=== PATIENT | male | born 1980 | race Caucasian/White ===

== ENCOUNTER 2016-11-30 19:59 | Emergency (ER) | payer OTHER ==
--- NOTE | 2016-11-30 21:57 | ED CLINICAL REPORT ---
Clinical Report - Physicians/Mid Levels [facility] [address] [place] [address] 11/30/2016 20:01 Patient: ORAL HAGAN Time Seen: 20:12; initial patient contact. Arrived- By ambulance. (park). Splint in place. Historian- patient and EMS personnel. HISTORY OF PRESENT ILLNESS Chief Complaint: Injury to the left leg and left knee. The injury happened just prior to arrival. The patient sustained an external rotation injury. Occurred at a park. ( Arrived by private vehicle. Historian: patient. Accompanied by family. Patient has a primary care physician. Primary physician (Suresh Piña). This occurred just prior to arrival. Occurred at a park. Mechanism of injury: sustained a twisting injury. The patient has had tingling, and trouble walking. The patient has been unable to walk. No numbness.). Patient is experiencing severe pain. No other injury. REVIEW OF SYSTEMS The patient complains of severe pain on weight bearing. He cannot walk. He has had swelling,, tingling, and weakness. All systems otherwise negative, except as recorded above. PAST HISTORY See nurses notes. Tetanus immunization status is up-to-date. Problems: Ocd. ADHD - Attention Deficit Hyperactivity Disorder. Cardiomegaly. Medications: Multi Complete Oral. Vyvanse Oral. AndroGel Transdermal. Allergies: None. SOCIAL HISTORY Never smoker. Occasional alcohol use. History of occasional drug use: marijuana. ADDITIONAL NOTES The nursing notes have been reviewed with agreement regarding the chief complaint, HPI, ROS, PMH and patient medications and allergies. PHYSICAL EXAM Vital Signs: 11/30/2016 20:02 BP: 146/77. HR: 64. RR: 16. O2 saturation: 100%. Temp: 98.1 F. Have been reviewed. Appearance: Alert. Appears to be in pain. Patient in mild distress. Skin: Skin intact. Skin warm and dry. Extremities: Left knee: moderate tenderness and swelling located in the proximal tibia, medial joint line and lateral joint line. Limited ROM secondary to pain, weakness and swelling (diminished flexion, extension and external and internal rotation). Small joint effusion present. Neurovascular intact distally. Left ankle. Neurovascular intact distally. No joint effusion. No tenderness. No foot injury. No ankle injury. Foot and ankle exam otherwise negative. No lower extremity edema. Gait: The patient was unable to bear weight. Gait not tested due to pain. Gait not tested due to pain. He was unable to bear weight. Neuro, Vascular and Tendons: Vascular status intact. Sensation intact. Motor intact. Tendon function intact. Neuro: Oriented X 3. LABS, X-RAYS, AND EKG X-Rays: Left tib/fib negative. The X-rays were independently viewed by me, interpreted by the radiologist and discussed with the radiologist. Lt Tib/Fib X-ray: No fracture. (PROCEDURE: XR TIBIA AND FIBULA - LEFT INDICATION: TRAUMA/INJURY TECHNIQUE: Two views of the left tibia and fibula COMPARISON: None. FINDINGS: Normal mineralization. No fractures. Normal osseous alignment. Well corticated, remote fracture of the medial malleolus. Tiny venous phlebolith noted along the proximal medial leg. No suspicious soft-tissue calcification or radiodense foreign bodies. IMPRESSION: 1. Intact left tibia and fibula. ). The X-rays were independently viewed by me, interpreted by the radiologist and discussed with the radiologist. Note - Tests: (Name: Oral Hagan : 1980 MR#: [id number] Ordering Provider: KB ASTUDILLO Exam(s): CT LOWER EXT W/O CONTRAST-LEFT Date of Exam: 11/30/2016 __ PROCEDURE: CT LOWER EXT W/O CONTRAST-LEFT INDICATION: Twisting injury, knee pain. TECHNIQUE: Axial thin-slice CT images were obtained through the left knee Coronal and sagittal reformations were created. COMPARISON: Plain films performed the same day FINDINGS: Soft tissues: There is a moderate size lipohemarthrosis. The anterior cruciate ligament was not well seen. Posterior cruciate ligament is vaguely seen and in the expected location. Components of the lateral collateral ligament complex appear grossly intact. No evidence of fibular avulsion. Medial collateral ligament appears grossly intact. No suspicious intra-articular calcifications. Bones: There is a tiny avulsion of the posterior rim of the mesial aspect of the medial tibial plateau. The lateral tibial plateau is intact. Minor marginal spur formation in the medial and lateral compartments. There are to linear sclerotic foci within the posterior aspect of the lateral femoral condyle which may be postoperative given patient history. IMPRESSION: 1. Minimal cortical avulsion of the posterior medial tibial plateau rim. 2. Lipohemarthrosis suggests occult fracture or significant osseous contusion. 3. Nonvisualization of the anterior cruciate ligament. This is nonspecific and may be post-traumatic or postsurgical. 4. MRI is recommended when the patient is able. 5. Findings called to the emergency room. Electronically Final signed by:Yeni Malone MD 11/30/2016 10:13:59 PM Technologist: CHITO). PROGRESS AND PROCEDURES Splint Application: Knee immobilizer applied to left knee. Splint applied by tech with direct supervision by me. Reassessed extremity following splint application. Neurovascular intact. Follow-up recommended within 2 days. Fitted for crutches by the tech. Course of Care: Patient is stable. Symptoms better. Consult obtained from orthopedics. Dr. Domínguez was available for consultation in the ER. Case discussed. Will see patient in the office in 2 days. Agree with treatment plan. Patient/family counseled. CLINICAL IMPRESSION Closed nondisplaced segmental fracture of the proximal aspect of the left tibia (medial tibial plateau fracture). Sprain of the medial collateral, lateral collateral, anterior cruciate and posterior cruciate ligament of the left knee. INSTRUCTIONS Apply ice. Use crutches. Wear knee immobilizer until released. Elevate affected areas above chest level. No weight bearing left leg until released. Do not work for three days until better. Do not go to school for seven days until better. No dietary restrictions. Warnings: COMPLICATIONS: Complications from this condition are possible. Future problems may include loss of function and pain. It is important to follow up with a physician for further evaluation and treatment. SEDATIVE MEDICATION: You were given sedative medication during your visit. Do not drive or operate dangerous machinery. CONTROLLED SUBSTANCE WARNINGS. Your Current Medications: CONTINUE TAKING THE FOLLOWING MEDICATIONS: AndroGel Transdermal. Multi Complete Oral. Vyvanse Oral. Prescription Medications: Oxycodone/APAP 5 mg/325 mg: take 1 tablet orally every 6 hours as needed for pain. Dispense fifteen (15). No refill. Ibuprofen 800 mg tablets: take 1 tablet orally every 8 hours as needed for pain, stiffness or swelling. Dispense thirty (30). No refill. Follow-up: Follow up with an orthopedic surgeon- as recommended by your primary care physician. Call for an appointment. Reason for referral: internal derangement left knee. Understanding of the discharge instructions verbalized by patient. Follow-up with: [facility], , [address], , [place], [address] Follow up in three days. Call for an appointment. Reason for referral: tibial plateau fracture and internal derangement of the left knee. (Electronically signed by Kb Astudillo PA-C 11/30/2016 23:40)
--- NOTE | 2016-11-30 21:57 | ED ORDER SUMMARY ---
..... Patient: ORAL CARDONA OrderSheet [facility] VisitID: [id number] [place] [address] 35y, M Registration Date/Time: 11/30/2016 ORDER SHEET Weight: 102.0 kg (stated) Allergies: None GENERAL ORDERS: Tibia/Fibula Left (trauma t left knee/tib/fib) Urgent (20:18 11/30/2016 ABlanchette PA-C) (Ack 20:22 ALawrence ER Tech1) (20:27 Mariel) CT Lower Extremity Without Contrast - Left Urgent (20:29 11/30/2016 ABlanchette PA-C) (Ack 20:39 ALawrence ER Tech1) (20:45 ASchmuck) Immobilizer - knee (21:26 11/30/2016 ABlanchette PA-C) (Ack 21:40 ASchmuck) (21:53 RKaruga) Crutches (21:26 11/30/2016 ABlanchette PA-C) (Ack 21:40 ASchmuck) (21:53 RKaruga) MEDICATION ORDERS: Oxycodone-APAP PO 5/325 mg (HIGH ALERT MEDICATION, NOW) (22:10 11/30/2016 ABlanchette PA-C) (Ack 23:10 HSoule) (23:14 HSoule) IV FLUIDS: Dilaudid IV 1 mg (HIGH ALERT MEDICATION, NOW) (20:20 11/30/2016 ABlanchette PA-C) (20:30 ASchmuck) IV Saline Lock (20:20 11/30/2016 ABlanchette PA-C) (20:30 ASchmuck) Toradol IV 30 mg (NOW) (21:19 11/30/2016 ABlanchette PA-C) (Ack 21:24 ASchmuck) (21:28 ASchmuck) Dilaudid IV 1 mg (HIGH ALERT MEDICATION, NOW) (21:19 11/30/2016 ABlanchette PA-C) (21:20 ASchmuck) ORDER SHEET NOTES: [Electronically signed by Jill Beach (23:37 11/30/2016)] [Electronically signed by Jaqueline Rosario PA-C (23:40 11/30/2016)] [Electronically locked/signed by Jill Beach (23:37 11/30/2016)]
--- NOTE | 2016-11-30 21:57 | ED NURSING NOTES ---
Clinical Report - Nurses [facility] [address] [place] [address] 11/30/2016 20:01 Patient: ORAL CARDONA TRIAGE Triage time 19:57 Agustin 04 2016. Acuity: LEVEL 3. Chief Complaint: INJURY TO LEFT KNEE and LEFT ANKLE. 20:02 11/30/16. Alert. No acute distress. SEPSIS SCREEN: Sepsis Screen. Negative (no infection suspected/documented). NICHOL COMA SCORE: [place] Coma Scale: 15- eyes open spontaneously (4); best verbal response- oriented x 4 (5); best motor response- obeys commands (6). --20:02 Erika Chanel 20:02 11/30/16. BP: 146/77. HR: 64. RR: 16. O2 saturation: 100%. Temp: 98.1 F. Pain level now 8/10. --20:02 Erika Chanel 20:09 11/30/16. --20:09 Erika Chanel. Weight: 102 kg stated. Height/Length: 68 inches Per Patient. BMI: 34.2. --19:59 Erika Chanel. Medications AndroGel Transdermal. --20:00 Erika Chanel Vyvanse Oral. --20:00 Erika Chanel Multi Complete Oral. --20:00 Erika Chanel. Medication/allergy information source: the patient. --20:02 Erika Chanel. Allergies None. --19:59 Erika Chanel. History Arrived by private vehicle. Historian: patient. Accompanied by family. Patient has a primary care physician. Primary physician (Suresh Piña). This occurred just prior to arrival. Occurred at a park. Mechanism of injury: sustained a twisting injury. The patient has had tingling, and trouble walking. The patient has been unable to walk. No numbness. Treatment MOLECULAR BIOLOGY SCIENTIST: Splint. BP: 134/70. HR: 64. RR: 22. O2 saturation: 98 % room air. PAST MEDICAL HX: Tetanus status: unknown. Immunizations: status is unknown. SOCIAL HX: Never smoker. Occasional alcohol use; consumes beer. History of drug use: marijuana. (every other day). FALL RISK ASSESSMENT: Fall risk assessment completed. No fall risk identified. NUTRITIONAL RISK ASSESSMENT: The nutritional risk assessment revealed no deficiencies. FUNCTIONAL ASSESSMENT: Functional assessment: no impairments noted. LEARNING NEEDS ASSESSMENT: The learning needs assessment revealed no barriers. SKIN INTEGRITY ASSESSMENT: Skin integrity risk assessment completed. No skin integrity risk identified. --20:02 Erika Chanel ( Patient reports pushing his kids on the [id number] and getting his ankle stuck. States, "It turned all the way around to my ass and then snapped back." EMS reports that they didn't see a deformity. Splint in place. Pt is able to move toes, does report tingling. ERMD notified.). --20:09 Erika Chanel. PROBLEMS: Ocd. ADHD - Attention Deficit Hyperactivity Disorder. Cardiomegaly. --20:01 Erika Chanel. ADDITIONAL SURGERIES: L knee. --20:01 Erika Chanel. Assessment The patient states feels the same. --20:02 Erika Chanel. Interventions ID band on patient. --20:02 Erika Chanel. PHYSICAL ASSESSMENT 20:11/30/16. To room via stretcher. Patient gowned. GENERAL / NEURO / PSYCH: Oriented X 4. Alert. Appears in pain. CVS: Pulses: left brachial 2+. EXTREMITIES: Limited ROM present. Capillary refill is less than 2 seconds in the extremities. Extremity pulses are within normal limits. Neuro-vascular status intact to the extremity. Left knee: tenderness. Left ankle: tenderness. SKIN: Skin intact. Skin is warm and dry. --20:04 Erika Chanel. NURSING PROGRESS NOTES 20:11/30/16. The plan of care for this patient has been created. Extremity elevated. Neuro-vascular extremity check. Reassurance given. Two patient identifiers checked. Call light placed in reach. Side rails up x 1. Bed placed in lowest position. Brakes of bed on. Patient ready for evaluation- chart flagged and ED physician and PA notified. --20:05 Erika Chanel 20:20 11/30/2016 Site #1 started via IV in the right forearm with an 18g angiocath, with aseptic technique and good blood return; one attempt. Blood drawn: rainbow set. Labeled in the presence of the patient and sent to the lab. Saline lock flushed with 10 mL saline. --20:30 Erika Chanel 20:20 11/30/16. ( Leg elevated with splint removal with PA and Kitchen Stewardess.). --20:40 Erika Chanel 20:25 11/30/2016 Dilaudid (HYDROmorphone HCl PF) IVP 1 mg given over 30 second(s) via site #1. Allergies verified, confirmed 5 rights and sedative warning given to the patient. IV patency established. IV site checked: no pain, redness, or swelling. IV flushed thoroughly pre- and post-medication administration. IVP given by RN. --20:30 Erika Chanel 20:25 11/30/16. ( Ice pack provided to pt.). --20:40 Erika Chanel 20:25 11/30/16. Pulse oximeter and NIBP monitor placed on patient. --20:45 Erika Chanel 20:39 11/30/16. Patient transported to radiology by stretcher with tech. --20:39 Erika Chanel 21:20 11/30/16. BP: 140/70. HR: 61. RR: 20. O2 saturation: 99%. Pain level now 8/10. --21:20 Erika Chanel 21:17 11/30/2016 Dilaudid (HYDROmorphone HCl PF) IVP 1 mg given over 30 second(s) via site #1. Allergies verified, confirmed 5 rights and sedative warning given to the patient. IV patency established. IV site checked: no pain, redness, or swelling. IV flushed thoroughly pre- and post-medication administration. IVP given by RN. --21:20 Erika Chanel 21:28 11/30/2016 Toradol IVP 30 mg given over 1 minute(s) via site #1. Allergies verified and confirmed 5 rights. IV patency established. IV site checked: no pain, redness, or swelling. IV flushed thoroughly pre- and post-medication administration. IVP given by RN. --: Erika Chanel 21:11/30/16. Pain level now 5/10. --21:52 Erika Chanel Extremities: Neuro-vascular status intact to the extremities. 21:52 11/30/16. Reassessment after medication administered. Overall patient status- he states feels better. GENERAL / NEURO / PSYCH: Alert. Oriented X 4. RESPIRATORY: No respiratory distress. CVS: Capillary refill less than 2 seconds. SKIN: Skin is warm and dry. --:52 Erika Chanel Immobilizer applied to right knee by dermatology technician; distal pulses intact, sensation intact and motor function within normal limits. Patient fit with new crutches. Crutch training performed by [employer]; the patient demonstrated proper use. --21:54 Tasia Roque 22:26 11/30/16. Care transferred and report given (KRISTIE Melchor). --:26 Erika Chanel 23:14 11/30/2016 Oxycodone-APAP (Oxycodone-Acetaminophen) PO 5/325 mg Tablets 1 tab given. Allergies verified, confirmed 5 rights and sedative warning given to the patient and patient's family. --23:14 Jill Beach. DISPOSITION / DISCHARGE 22:12 11/30/16. Condition at departure: improved. The goals identified in the patient's plan of care were met. No learning barriers present. Discharge instructions provided and reviewed with the patient. Reviewed warnings (Patient verbalized understanding of sedation warning.). Reviewed medication(s) side effects, precautions, dosing and course information. Prescription(s) given to the patient (motrin, oxycodone). Treatments reviewed. Reviewed referral to an orthopedic surgeon and a primary care physician for followup. Patient verbalized understanding. Written instructions provided in Welsh. The patient was discharged by the physician mental health assistant. He was discharged home and accompanied by family. He left the Emergency Department on crutches and via private vehicle. Family member driving. FALL RISK ASSESSMENT: Fall risk assessment completed. No fall risk identified. --22:12 Erika Chanel 22:10 11/30/16. BP: 113/64. HR: 60. RR: 18. O2 saturation: 98% on room air. Temp: 97.8 F. Pain level now: 11/05. --22:12 Erika Chanel. Locked/Released at 11/30/2016 23:37 by Jill Beach,
--- NOTE | 2016-11-30 21:57 | ED ORDER SUMMARY ---
..... Patient: ORAL CARDONA OrderSheet [facility] VisitID: [id number] [place] [address] 35y, M Registration Date/Time: 11/30/2016 ORDER SHEET Weight: 102.0 kg (stated) Allergies: None GENERAL ORDERS: Tibia/Fibula Left (trauma t left knee/tib/fib) Urgent (20:18 11/30/2016 ABlanchette PA-C) (Ack 20:22 ALawrence ER Tech1) (20:27 Mariel) CT Lower Extremity Without Contrast - Left Urgent (20:29 11/30/2016 ABlanchette PA-C) (Ack 20:39 ALawrence ER Tech1) (20:45 ASchmuck) Immobilizer - knee (21:26 11/30/2016 ABlanchette PA-C) (Ack 21:40 ASchmuck) (21:53 RKaruga) Crutches (21:26 11/30/2016 ABlanchette PA-C) (Ack 21:40 ASchmuck) (21:53 RKaruga) MEDICATION ORDERS: Oxycodone-APAP PO 5/325 mg (HIGH ALERT MEDICATION, NOW) (22:10 11/30/2016 ABlanchette PA-C) (Ack 23:10 HSoule) (23:14 HSoule) IV FLUIDS: Dilaudid IV 1 mg (HIGH ALERT MEDICATION, NOW) (20:20 11/30/2016 ABlanchette PA-C) (20:30 ASchmuck) IV Saline Lock (20:20 11/30/2016 ABlanchette PA-C) (20:30 ASchmuck) Toradol IV 30 mg (NOW) (21:19 11/30/2016 ABlanchette PA-C) (Ack 21:24 ASchmuck) (21:28 ASchmuck) Dilaudid IV 1 mg (HIGH ALERT MEDICATION, NOW) (21:19 11/30/2016 ABlanchette PA-C) (21:20 ASchmuck) ORDER SHEET NOTES: [Electronically signed by Jill Beach (23:37 11/30/2016)] [Electronically signed by Jaqueline Rosario PA-C (23:40 11/30/2016)] [Electronically locked/signed by Jill Beach (23:37 11/30/2016)]
--- NOTE | 2016-11-30 21:57 | ED CLINICAL REPORT ---
Clinical Report - Physicians/Mid Levels [facility] [address] [place] [address] 11/30/2016 20:01 Patient: ORAL HAGAN Time Seen: 20:12; initial patient contact. Arrived- By ambulance. (park). Splint in place. Historian- patient and EMS personnel. HISTORY OF PRESENT ILLNESS Chief Complaint: Injury to the left leg and left knee. The injury happened just prior to arrival. The patient sustained an external rotation injury. Occurred at a park. ( Arrived by private vehicle. Historian: patient. Accompanied by family. Patient has a primary care physician. Primary physician (Suresh Piña). This occurred just prior to arrival. Occurred at a park. Mechanism of injury: sustained a twisting injury. The patient has had tingling, and trouble walking. The patient has been unable to walk. No numbness.). Patient is experiencing severe pain. No other injury. REVIEW OF SYSTEMS The patient complains of severe pain on weight bearing. He cannot walk. He has had swelling,, tingling, and weakness. All systems otherwise negative, except as recorded above. PAST HISTORY See nurses notes. Tetanus immunization status is up-to-date. Problems: Ocd. ADHD - Attention Deficit Hyperactivity Disorder. Cardiomegaly. Medications: Multi Complete Oral. Vyvanse Oral. AndroGel Transdermal. Allergies: None. SOCIAL HISTORY Never smoker. Occasional alcohol use. History of occasional drug use: marijuana. ADDITIONAL NOTES The nursing notes have been reviewed with agreement regarding the chief complaint, HPI, ROS, PMH and patient medications and allergies. PHYSICAL EXAM Vital Signs: 11/30/2016 20:02 BP: 146/77. HR: 64. RR: 16. O2 saturation: 100%. Temp: 98.1 F. Have been reviewed. Appearance: Alert. Appears to be in pain. Patient in mild distress. Skin: Skin intact. Skin warm and dry. Extremities: Left knee: moderate tenderness and swelling located in the proximal tibia, medial joint line and lateral joint line. Limited ROM secondary to pain, weakness and swelling (diminished flexion, extension and external and internal rotation). Small joint effusion present. Neurovascular intact distally. Left ankle. Neurovascular intact distally. No joint effusion. No tenderness. No foot injury. No ankle injury. Foot and ankle exam otherwise negative. No lower extremity edema. Gait: The patient was unable to bear weight. Gait not tested due to pain. Gait not tested due to pain. He was unable to bear weight. Neuro, Vascular and Tendons: Vascular status intact. Sensation intact. Motor intact. Tendon function intact. Neuro: Oriented X 3. LABS, X-RAYS, AND EKG X-Rays: Left tib/fib negative. The X-rays were independently viewed by me, interpreted by the radiologist and discussed with the radiologist. Lt Tib/Fib X-ray: No fracture. (PROCEDURE: XR TIBIA AND FIBULA - LEFT INDICATION: TRAUMA/INJURY TECHNIQUE: Two views of the left tibia and fibula COMPARISON: None. FINDINGS: Normal mineralization. No fractures. Normal osseous alignment. Well corticated, remote fracture of the medial malleolus. Tiny venous phlebolith noted along the proximal medial leg. No suspicious soft-tissue calcification or radiodense foreign bodies. IMPRESSION: 1. Intact left tibia and fibula. ). The X-rays were independently viewed by me, interpreted by the radiologist and discussed with the radiologist. Note - Tests: (Name: Oral Hagan : 1980 MR#: [id number] Ordering Provider: KB ASTUDILLO Exam(s): CT LOWER EXT W/O CONTRAST-LEFT Date of Exam: 11/30/2016 __ PROCEDURE: CT LOWER EXT W/O CONTRAST-LEFT INDICATION: Twisting injury, knee pain. TECHNIQUE: Axial thin-slice CT images were obtained through the left knee Coronal and sagittal reformations were created. COMPARISON: Plain films performed the same day FINDINGS: Soft tissues: There is a moderate size lipohemarthrosis. The anterior cruciate ligament was not well seen. Posterior cruciate ligament is vaguely seen and in the expected location. Components of the lateral collateral ligament complex appear grossly intact. No evidence of fibular avulsion. Medial collateral ligament appears grossly intact. No suspicious intra-articular calcifications. Bones: There is a tiny avulsion of the posterior rim of the mesial aspect of the medial tibial plateau. The lateral tibial plateau is intact. Minor marginal spur formation in the medial and lateral compartments. There are to linear sclerotic foci within the posterior aspect of the lateral femoral condyle which may be postoperative given patient history. IMPRESSION: 1. Minimal cortical avulsion of the posterior medial tibial plateau rim. 2. Lipohemarthrosis suggests occult fracture or significant osseous contusion. 3. Nonvisualization of the anterior cruciate ligament. This is nonspecific and may be post-traumatic or postsurgical. 4. MRI is recommended when the patient is able. 5. Findings called to the emergency room. Electronically Final signed by:Yeni Malone MD 11/30/2016 10:13:59 PM Technologist: CHITO). PROGRESS AND PROCEDURES Splint Application: Knee immobilizer applied to left knee. Splint applied by tech with direct supervision by me. Reassessed extremity following splint application. Neurovascular intact. Follow-up recommended within 2 days. Fitted for crutches by the tech. Course of Care: Patient is stable. Symptoms better. Consult obtained from orthopedics. Dr. Domínguez was available for consultation in the ER. Case discussed. Will see patient in the office in 2 days. Agree with treatment plan. Patient/family counseled. CLINICAL IMPRESSION Closed nondisplaced segmental fracture of the proximal aspect of the left tibia (medial tibial plateau fracture). Sprain of the medial collateral, lateral collateral, anterior cruciate and posterior cruciate ligament of the left knee. INSTRUCTIONS Apply ice. Use crutches. Wear knee immobilizer until released. Elevate affected areas above chest level. No weight bearing left leg until released. Do not work for three days until better. Do not go to school for seven days until better. No dietary restrictions. Warnings: COMPLICATIONS: Complications from this condition are possible. Future problems may include loss of function and pain. It is important to follow up with a physician for further evaluation and treatment. SEDATIVE MEDICATION: You were given sedative medication during your visit. Do not drive or operate dangerous machinery. CONTROLLED SUBSTANCE WARNINGS. Your Current Medications: CONTINUE TAKING THE FOLLOWING MEDICATIONS: AndroGel Transdermal. Multi Complete Oral. Vyvanse Oral. Prescription Medications: Oxycodone/APAP 5 mg/325 mg: take 1 tablet orally every 6 hours as needed for pain. Dispense fifteen (15). No refill. Ibuprofen 800 mg tablets: take 1 tablet orally every 8 hours as needed for pain, stiffness or swelling. Dispense thirty (30). No refill. Follow-up: Follow up with an orthopedic surgeon- as recommended by your primary care physician. Call for an appointment. Reason for referral: internal derangement left knee. Understanding of the discharge instructions verbalized by patient. Follow-up with: [facility], , [address], , [place], [id number] Follow up in three days. Call for an appointment. Reason for referral: tibial plateau fracture and internal derangement of the left knee. (Electronically signed by Kb Astudillo PA-C 11/30/2016 23:40)
--- NOTE | 2016-11-30 22:14 | DIAGNOSTIC IMAGING REPORT ---
PROCEDURE: CT LOWER EXT W/O CONTRAST-LEFT INDICATION: Twisting injury, knee pain. TECHNIQUE: Axial thin-slice CT images were obtained through the left knee Coronal and sagittal reformations were created. COMPARISON: Plain films performed the same day FINDINGS: Soft tissues: There is a moderate size lipohemarthrosis. The anterior cruciate ligament was not well seen. Posterior cruciate ligament is vaguely seen and in the expected location. Components of the lateral collateral ligament complex appear grossly intact. No evidence of fibular avulsion. Medial collateral ligament appears grossly intact. No suspicious intra-articular calcifications. Bones: There is a tiny avulsion of the posterior rim of the mesial aspect of the medial tibial plateau. The lateral tibial plateau is intact. Minor marginal spur formation in the medial and lateral compartments. There are to linear sclerotic foci within the posterior aspect of the lateral femoral condyle which may be postoperative given patient history. IMPRESSION: 1. Minimal cortical avulsion of the posterior medial tibial plateau rim. 2. Lipohemarthrosis suggests occult fracture or significant osseous contusion. 3. Nonvisualization of the anterior cruciate ligament. This is nonspecific and may be post-traumatic or postsurgical. 4. MRI is recommended when the patient is able. 5. Findings called to the emergency room.
--- NOTE | 2016-11-30 22:51 | DIAGNOSTIC IMAGING REPORT ---
PROCEDURE: XR TIBIA AND FIBULA - LEFT INDICATION: TRAUMA/INJURY TECHNIQUE: Two views of the left tibia and fibula COMPARISON: None. FINDINGS: Normal mineralization. There is a very tiny calcification just posterior to the tibial plateau seen only on the lateral view. No other fracture seen. Small to moderate suprapatellar effusion. The ankle joint is not grossly normal alignment. No radiodense foreign bodies in the soft tissue. IMPRESSION: 1. Tiny calcification posterior to the tibial plateau on the lateral view may be a small cortical avulsion. CT has been performed. 2. Small knee joint effusion.
--- NOTE | 2016-11-30 23:41 | ED MAR SUMMARY ---
..... Medication Administration Record [facility] [address] [place] [address] Patient: ORAL CARDONA Visit ID: [id number] 35y, M Weight: 102.0 kg Height/Length: 68 in BMI: 34.2 ALLERGIES: None Given 20:25 11/30/2016 Erika Chanel, Medication Administered: DILAUDID [IVP] (HYDROMORPHONE HCL PF), Dose: 1 mg IVP over 30 second(s), Site: #1 right forearm. Medication Ordered: Dilaudid IV 1 mg (HIGH ALERT MEDICATION, NOW). Given 21:17 11/30/2016 Erika Chanel, Medication Administered: DILAUDID [IVP] (HYDROMORPHONE HCL PF), Dose: 1 mg IVP over 30 second(s), Site: #1 right forearm. Medication Ordered: Dilaudid IV 1 mg (HIGH ALERT MEDICATION, NOW). Given 21:28 11/30/2016 Erika Chanel, Medication Administered: TORADOL [IVP], Dose: 30 mg IVP over 1 minute(s), Site: #1 right forearm. Medication Ordered: Toradol IV 30 mg (NOW). Given 23:14 11/30/2016 Jill Beach, Medication Administered: OXYCODONE-APAP [PO] (OXYCODONE-ACETAMINOPHEN), Dose: 1 tab 5/325 mg Tablets PO. Medication Ordered: Oxycodone-APAP PO 5/325 mg (HIGH ALERT MEDICATION, NOW).
--- NOTE | 2016-11-30 23:41 | ED MED RECONCILIATION SUMMARY ---
Patient: ORAL CARDONA Medication Reconciliation Report [facility] VisitID: [id number] [address] [place] [address] 35y, M Registration Date/Time: 11/30/2016 Weight: 102.0 kg Height/Length: 68 in. BMI: 34.2 ALLERGIES: None The patient's Home Medications are listed below: CONTINUE TAKING THE FOLLOWING MEDICATIONS: AndroGel Transdermal Multi Complete Oral Vyvanse Oral The source(s) of the original Home Medication information: patient The following Medications were given to the patient in the Emergency Department: Dilaudid [IVP] IVP 1 mg, administered: 11/30/2016 8:25:00 PM Dilaudid [IVP] IVP 1 mg, administered: 11/30/2016 9:17:00 PM Toradol [IVP] IVP 30 mg, administered: 11/30/2016 9:28:00 PM Oxycodone-APAP [PO] PO 1 tab, administered: 11/30/2016 11:14:00 PM The following Medications were prescribed to the patient: Oxycodone/APAP 5 mg/325 mg: take 1 tablet orally every 6 hours as needed for pain. Dispense fifteen (15). No refill. -- Jaqueline Rosario PA-C Ibuprofen 800 mg tablets: take 1 tablet orally every 8 hours as needed for pain, stiffness or swelling. Dispense thirty (30). No refill. -- Jaqueline Rosario PA-C
--- NOTE | 2016-11-30 23:41 | ED MED RECONCILIATION SUMMARY ---
Patient: ORAL CARDONA Medication Reconciliation Report [facility] VisitID: [id number] [address] [place] [address] 35y, M Registration Date/Time: 11/30/2016 Weight: 102.0 kg Height/Length: 68 in. BMI: 34.2 ALLERGIES: None The patient's Home Medications are listed below: CONTINUE TAKING THE FOLLOWING MEDICATIONS: AndroGel Transdermal Multi Complete Oral Vyvanse Oral The source(s) of the original Home Medication information: patient The following Medications were given to the patient in the Emergency Department: Dilaudid [IVP] IVP 1 mg, administered: 11/30/2016 8:25:00 PM Dilaudid [IVP] IVP 1 mg, administered: 11/30/2016 9:17:00 PM Toradol [IVP] IVP 30 mg, administered: 11/30/2016 9:28:00 PM Oxycodone-APAP [PO] PO 1 tab, administered: 11/30/2016 11:14:00 PM The following Medications were prescribed to the patient: Oxycodone/APAP 5 mg/325 mg: take 1 tablet orally every 6 hours as needed for pain. Dispense fifteen (15). No refill. -- Jaqueline Rosario PA-C Ibuprofen 800 mg tablets: take 1 tablet orally every 8 hours as needed for pain, stiffness or swelling. Dispense thirty (30). No refill. -- Jaqueline Rosario PA-C
--- NOTE | 2016-11-30 23:41 | ED MAR SUMMARY ---
..... Medication Administration Record [facility] [address] [place] [address] Patient: ORAL CARDONA Visit ID: [id number] 35y, M Weight: 102.0 kg Height/Length: 68 in BMI: 34.2 ALLERGIES: None Given 20:25 11/30/2016 Erika Chanel, Medication Administered: DILAUDID [IVP] (HYDROMORPHONE HCL PF), Dose: 1 mg IVP over 30 second(s), Site: #1 right forearm. Medication Ordered: Dilaudid IV 1 mg (HIGH ALERT MEDICATION, NOW). Given 21:17 11/30/2016 Erika Chanel, Medication Administered: DILAUDID [IVP] (HYDROMORPHONE HCL PF), Dose: 1 mg IVP over 30 second(s), Site: #1 right forearm. Medication Ordered: Dilaudid IV 1 mg (HIGH ALERT MEDICATION, NOW). Given 21:28 11/30/2016 Erika Chanel, Medication Administered: TORADOL [IVP], Dose: 30 mg IVP over 1 minute(s), Site: #1 right forearm. Medication Ordered: Toradol IV 30 mg (NOW). Given 23:14 11/30/2016 Jill Beach, Medication Administered: OXYCODONE-APAP [PO] (OXYCODONE-ACETAMINOPHEN), Dose: 1 tab 5/325 mg Tablets PO. Medication Ordered: Oxycodone-APAP PO 5/325 mg (HIGH ALERT MEDICATION, NOW).
--- NOTE | 2016-11-30 23:41 | ED DISCHARGE INSTRUCTIONS ---
Patient: ORAL CARDONA General Instructions [facility] VisitID: [id number] [address] [place] [address] 35y, M Registration Date/Time: 11/30/2016 Closed nondisplaced segmental fracture of the proximal aspect of the left tibia (medial tibial plateau fracture). Sprain of the medial collateral, lateral collateral, anterior cruciate and posterior cruciate ligament of the left knee. INSTRUCTIONS Apply ice. Use crutches. Wear knee immobilizer until released. Elevate affected areas above chest level. No weight bearing left leg until released. Do not work for three days until better. Do not go to school for seven days until better. No dietary restrictions. Warnings: COMPLICATIONS: Complications from this condition are possible. Future problems may include loss of function and pain. It is important to follow up with a physician for further evaluation and treatment. SEDATIVE MEDICATION: You were given sedative medication during your visit. Do not drive or operate dangerous machinery. CONTROLLED SUBSTANCE WARNINGS. Your Current Medications: CONTINUE TAKING THE FOLLOWING MEDICATIONS: AndroGel Transdermal. Multi Complete Oral. Vyvanse Oral. Prescription Medications: Oxycodone/APAP 5 mg/325 mg: take 1 tablet orally every 6 hours as needed for pain. Dispense fifteen (15). No refill. Ibuprofen 800 mg tablets: take 1 tablet orally every 8 hours as needed for pain, stiffness or swelling. Dispense thirty (30). No refill. Follow-up: Follow up with an orthopedic surgeon- as recommended by your primary care physician. Call for an appointment. Reason for referral: internal derangement left knee. Understanding of the discharge instructions verbalized by patient. Follow-up with: [facility], , [address], , [place], [address] Follow up in three days. Call for an appointment. Reason for referral: tibial plateau fracture and internal derangement of the left knee. ADDITIONAL INFORMATION Fracture: Lower Extremity You have a break (fracture) of the leg. A fracture is treated with a splint or cast or special boot. It will take at about 4-6 weeks for the fracture to heal. Surgery may be needed to fix severe injuries. Home Care: You will be given a splint, cast, boot, or other device to prevent movement at the site of injury. Unless you were told otherwise, use crutches or a walker and do not bear weight on the injured leg until cleared by your doctor to do so. (Crutches and walkers can be rented at many pharmacies and surgical/orthopedic supply stores). Keep your leg elevated to reduce pain and swelling. When sleeping, place a pillow under the injured leg. When sitting, support the injured leg so it is level with your waist. This is very important during the first 48 hours. Apply an ice pack (ice cubes in a plastic bag, wrapped in a towel) over the injured area for 20 minutes every 1-2 hours the first day. You can place the ice pack directly over the splint/cast. Continue with ice packs 3-4 times a day for the next two days, then as needed for the relief of pain and swelling. Keep the cast/splint/boot completely dry at all times. Bathe with your cast/splint/boot out of the water, protected with a large plastic bag, rubber-banded at the top end. If a boot or fiberglass cast/splint gets wet, you can dry it with a hair-dryer. You may use acetaminophen (Tylenol) or ibuprofen (Motrin, Advil) to control pain, unless another pain medicine was prescribed. [NOTE: If you have chronic liver or kidney disease or ever had a stomach ulcer or GI bleeding, talk with your doctor before using these medicines.] Follow Up with you doctor in one week, or as advised by our staff, to be sure the bone is healing properly. If a splint was applied, it may be converted to a cast at your next visit. [NOTE: A radiologist will review any X-rays that were taken. We will notify you of any new findings that may affect your care.] Get Prompt Medical Attention if any of the following occur: The plaster cast or splint becomes wet or soft The fiberglass cast or splint remains wet for more than 24 hours Increased tightness or pain under the cast or splint Toes become swollen, cold, blue, numb or tingly You have been given the following additional information: Fracture, Lower Extremity No weight bearing left leg until released. Do not work for three days until better. Do not go to school for seven days until better. (Electronically signed by Jaqueline Rosario PA-C 11/30/2016 23:40)
== END 2016-11-30 22:25 | disposition home or self-care (01) ==
LOC: ED SRH 19:59
DX: S82.145A Nondisplaced bicondylar fracture of left tibia, initial encounter for closed fracture (principal); S83.412A Sprain of medial collateral ligament of left knee, initial encounter; S83.422A Sprain of lateral collateral ligament of left knee, initial encounter; S83.512A Sprain of anterior cruciate ligament of left knee, initial encounter; S83.522A Sprain of posterior cruciate ligament of left knee, initial encounter; X50.3XXA Overexertion from repetitive movements, initial encounter; Y93.89 Activity, other specified; Y99.8 Other external cause status; Y92.830 Public park as the place of occurrence of the external cause

== ENCOUNTER 2016-12-23 10:43 | Outpatient (CLI) | payer OTHER ==
--- NOTE | 2016-12-23 17:56 | DIAGNOSTIC IMAGING REPORT ---
PROCEDURE: MR LOWER EXT JOINT WO CONT-LT INDICATION: LEFT KNEE SPRAIN ACL TECHNIQUE: PD axial, T1 and PD fat sat coronal, PD and PD fat sat sagittal, and sagittal oblique STIR sequence through the ACL. COMPARISON: Plain films and CT 11/30/2016 FINDINGS: Menisci: There is an oblique horizontal tear involving the body and posterior horn of the medial meniscus with high signal extending to the inferior articular surface. There is a vertical tear involving the posterior horn of the lateral meniscus as well as an acute meniscocapsular separation at the posterolateral corner. The posterior horn is diminutive and there might be meniscal fragment within the intercondylar notch. Ligaments: There is a complete rupture of the anterior cruciate ligament. Fragments are seen anterior to the intercondylar notch within the joint space. There is a high-grade partial tearing of the origin of the posterior cruciate ligament. Low grade strain of the medial collateral ligament superficial fibers. There has been avulsion of the inferior lateral meniscotibial ligament from the tibia. The lateral collateral ligament complex and popliteus tendon are intact. Extensor mechanism: Intact. Osseous structures and articular surfaces: Osseous contusion across the entire posterior tibia. Subtle avulsion fracture of the posterior rim of the medial tibial plateau. There is impaction deformity along the posterior aspect of the lateral tibial plateau without displaced fracture fragment or discrete fracture plane visible. Moderate osseous contusion involving the lateral femoral condyle with a focal subcortical fracture of the mid weightbearing surface. No linear subcortical high T2 signal to suggest a loose fragment. Mild overlying cartilage thinning without displaced fragment. Mild contusion along the medial aspect of the medial femoral condyle. Fluid, soft tissues, and joint space: Large joint effusion. There are multiple foci of debris anterior to the intercondylar notch and more cranial within the joint effusion. No Arthur's cyst. No pes anserine bursitis. Normal tendinous attachments. IMPRESSION: 1. Complete ACL tear. 2. Large posterior horn lateral meniscal tear with meniscocapsular separation, possibly medially displaced fragment, and posterolateral corner capsule laxity. 3. High-grade partial PCL tear. 4. Low grade partial MCL tear. 5. Posterior medial and lateral tibial plateau fractures with a minimally displaced medial plateau fragments. 6. Nondisplaced osteochondral impaction fracture involving the lateral femoral condyle central weightbearing surface. 7. Horizontal body and posterior horn medial meniscal tear. 8. Large joint effusion containing debris.
== END 2016-12-23 23:00 | disposition home or self-care (01) ==
LOC: MRI SRH 10:43
DX: S83.512A Sprain of anterior cruciate ligament of left knee, initial encounter (principal); S83.521A Sprain of posterior cruciate ligament of right knee, initial encounter; S83.412A Sprain of medial collateral ligament of left knee, initial encounter; S72.432A Displaced fracture of medial condyle of left femur, initial encounter for closed fracture